=== PATIENT | male | born 1940 | race Caucasian/White ===

== ENCOUNTER 2017-07-26 16:09 | Observation (INO) | payer OTHER ==
[2017-07-26] MEDS ORDERED: NS 1,000 ML IV ONE (16:19)
--- NOTE | 2017-07-26 16:23 | CPEKG ---
Heart Rate: 53 RR Interval: 1132 P-R Interval: 156 QRSD Interval: 114 QT Interval: 484 QTC Interval: 455 P Pendleton: 42 QRS Pendleton: 73 T Wave Pendleton: 34 EKG Severity - ABNORMAL ECG - EKG Impression: SINUS RHYTHM EKG Impression: NONSPECIFIC INTRAVENTRICULAR CONDUCTION DELAY Electronically Signed By: Dario Rojo 26-Jul-2017 16:24:39
--- NOTE | 2017-07-26 16:23 | EDPHY ---
H & P Stated Complaint: Near Syncope HPI/ROS: CHIEF COMPLAINT: Pre syncope HISTORY OF PRESENT ILLNESS: The patient is a 77-year-old man with a history of coronary artery disease and posttraumatic vertigo. He stood up from his desk where he had been working for several hours and walked to the kitchen. When he closed the door the refrigerator in turned around he had severe onset of lightheadedness. He states that did not feel like his typical vertigo symptoms. He felt like he was going to faint and leaned over the counter. His symptoms resolved after about 5 seconds. He denies chest pain or palpitations or shortness of breath associated. He then sat himself on the floor the kitchen and his called 911. When they arrived he had stable blood pressure but heart rate was bradycardic in the 50s in even 40s. He does take metoprolol daily. He did not take any x-rayed today. He denies recent fevers or illness. REVIEW OF SYSTEMS: Constitutional: denies: chills, fever, recent illness, recent injury EENTM: denies: blurred vision, double vision, nose congestion Respiratory: denies: cough, shortness of breath Cardiac: See HPI denies: chest pain, irregular heart rate, palpitations Gastrointestinal/Abdominal: denies: abdominal pain, diarrhea, nausea, vomiting, blood streaked stools Genitourinary: denies: dysuria, frequency, hematuria, pain Musculoskeletal: denies: joint pain, muscle pain Skin: denies: lesions, rash, jaundice, bruising Neurological: denies: headache, numbness, paresthesia, tingling, dizziness, weakness Hematologic/Lymphatic: denies: blood clots, easy bleeding, easy bruising Immunologic/allergic: denies: HIV/AIDS, transplant EXAM: GENERAL: Well-appearing, well-nourished and in no acute distress. HEAD: Atraumatic, normocephalic. EYES: Pupils equal round and reactive to light, extraocular movements intact, sclera anicteric, conjunctiva are normal. ENT: TMs normal, nares patent, oropharynx clear without exudates. Moist mucous membranes. NECK: Normal range of motion, supple without lymphadenopathy or JVD. LUNGS: Breath sounds clear to auscultation bilaterally and equal. No wheezes rales or rhonchi. HEART: Bradycardic Regular rate and rhythm without murmurs, rubs or gallops. ABDOMEN: Soft, nontender, normoactive bowel sounds. No guarding, no rebound. No masses appreciated. BACK: No CVA tenderness, no spinal tenderness, step-offs or deformities EXTREMITIES: Normal range of motion, no pitting or edema. No clubbing or cyanosis. NEUROLOGICAL: Cranial nerves II through XII grossly intact. Normal speech, normal gait. 5/5 strength, normal movement in all extremities, normal sensation PSYCH: Normal mood, normal affect. SKIN: Warm, dry, normal turgor, no visible rashes or lesions. Source: Patient, EMS Exam Limitations: No limitations - Personal History Current Tetanus Diphtheria and Acellular Pertussis (TDAP): Yes - Medical/Surgical History Hx Asthma: No Hx Chronic Respiratory Disease: No Hx Diabetes: No Hx Cardiac Disease: Yes Hx Renal Disease: No Hx Cirrhosis: No Hx Alcoholism: No Hx HIV/AIDS: No Hx Splenectomy or Spleen Trauma: No Other PMH: [place], HTN, Prostate CA, Back Sgy - Family History Significant Family History: No pertinent family hx - Social History Smoking Status: Never smoked Alcohol Use: None Drug Use: None Constitutional: Initial Vital Signs Temperature (C) 36.7 C 07/26/17 16:14 Heart Rate 56 L 07/26/17 16:14 Respiratory Rate 18 07/26/17 16:14 Blood Pressure 175/94 H 07/26/17 16:14 O2 Sat (%) 99 07/26/17 16:14 O2 Delivery Mode Room Air Allergies/Adverse Reactions: tetracycline [Tetracycline] Allergy (Severe, Verified 07/16/10 12:04) SCROTAL SKIN PEEL celecoxib [From Celebrex] Allergy (Intermediate, Verified 07/16/10 12:06) SORES IN MOUTH meloxicam [Meloxicam] Allergy (Intermediate, Verified 07/16/10 12:05) SORES IN MOUTH CONTRAST Allergy (Severe, Uncoded 07/10/09 19:48) Anaphylaxis Home Medications: Medication Instructions Recorded Diazepam [Valium 2 MG (*)] 2 mg PO BID 07/26/17 Famotidine [Pepcid 20 MG (*)] 20 mg PO BID 07/26/17 Herbals/Supplements -Info Only 1 ea PO DAILY 07/26/17 Lisinopril [Zestril 5 mg (*)] 5 mg PO DAILY 07/26/17 Metoprolol Succinate 50 mg PO DAILY 07/26/17 Rosuvastatin Calcium [Crestor 20mg 10 mg PO DAILY 07/26/17 (*)] Medical Decision Making - Diagnostics EKG Interpretation: An EKG obtained and was read and documented in trace view. Please see trace view for full reading and report. Sinus rhythm, bradycardia, no acute ischemic changes Imaging Results: Imaging Impressions Chest X-Ray 07/26/17 16:20 Impression: Negative. ED Course/Re-evaluation: 4:51 p.m. I discussed the case with Dr. Reeder who will admit to the PCU for further monitoring and possibly pacemaker. Differential Diagnosis: Partial list of the Differential diagnosis considered include but were not limited to; vertigo, bradycardia, presyncope and although unlikely based on the history and physical exam, I also considered dehydration, electrolyte abnormality, acute coronary disease. - Data Points Laboratory Results: Laboratory Results 07/26/17 16:20 07/26/17 16:20 07/26/17 07/26/17 07/26/17 16:20 16:20 16:20 WBC 7.26 10^3/uL 10^3/uL (3.80-9.50) RBC 4.06 10^6/uL L 10^6/uL (4.40-6.38) Hgb 14.0 g/dL g/dL (13.7-17.5) Hct 38.8 % L % (40.0-51.0) MCV 95.6 fL fL (81.5-99.8) MCH 34.5 pg H pg (27.9-34.1) MCHC 36.1 g/dL g/dL (32.4-36.7) RDW 12.0 % % (11.5-15.2) Plt Count 208 10^3/uL 10^3/uL (150-400) MPV 9.3 fL fL (8.7-11.7) Neut % (Auto) 58.6 % % (39.3-74.2) Lymph % (Auto) 28.2 % % (15.0-45.0) Baxter % (Auto) 9.0 % % (4.5-13.0) Eos % (Auto) 3.3 % % (0.6-7.6) Baso % (Auto) 0.8 % % (0.3-1.7) Nucleat RBC Rel Count 0.0 % % (0.0-0.2) Absolute Neuts (auto) 4.25 10^3/uL 10^3/uL (1.70-6.50) Absolute Lymphs (auto) 2.05 10^3/uL 10^3/uL (1.00-3.00) Absolute Monos (auto) 0.65 10^3/uL 10^3/uL (0.30-0.80) Absolute Eos (auto) 0.24 10^3/uL 10^3/uL (0.03-0.40) Absolute Basos (auto) 0.06 10^3/uL 10^3/uL (0.02-0.10) Absolute Nucleated RBC 0.00 10^3/uL 10^3/uL (0-0.01) Immature Gran % 0.1 % % (0.0-1.1) Immature Gran # 0.01 10^3/uL 10^3/uL (0.00-0.10) PT 13.5 SEC SEC (12.0-15.0) INR 1.04 (0.83-1.16) APTT 26.0 SEC SEC (23.0-38.0) Sodium 137 mEq/L mEq/L (134-144) Potassium 4.2 mEq/L mEq/L (3.5-5.2) Chloride 103 mEq/L mEq/L (97-110) Carbon Dioxide 22 mEq/l mEq/l (22-31) Anion Gap 12 mEq/L mEq/L (8-16) BUN 26 mg/dL H mg/dL (7-23) Creatinine 1.3 mg/dL mg/dL (0.7-1.3) Estimated GFR 54 Glucose 97 mg/dL mg/dL (70-100) Calcium 9.1 mg/dL mg/dL (8.5-10.4) Troponin I < 0.012 ng/mL ng/mL (0.000-0.034) Medications Given: Discontinued Medications Sodium Chloride (Ns) 1,000 mls @ 0 mls/hr IV EDNOW ONE; Wide Open PRN Reason: Protocol Stop: 07/26/17 16:20 Last Admin: 07/26/17 16:47 Dose: 1,000 mls Departure - Departure Disposition: Home, Routine, Self-Care Clinical Impression: Pre-syncope Syncope Qualifiers: Syncope type: unspecified Qualified Code(s): R55 - Syncope and collapse Condition: Good
[2017-07-26 16:33] LABS: % IMMATURE GRANULYOCYTES 0.1 % (0.0-1.1); ABSOLUTE IMMATURE GRANULOCYTES 0.01 10^3/uL (0.00-0.10); ADD DIFF? NO; ADD MORPH? NO; ADD SCAN? NO; ATYPICAL LYMPHOCYTE FLAG 0 (0-99); FRAGMENT RBC FLAG 0 (0-99); HEMATOCRIT 38.8 % (40.0-51.0); LEFT SHIFT FLG 0 (0-99); LIPEMIA HEMOLYSIS FLAG 90 (0-99); MEAN CELL HEMOGLOBIN 34.5 pg (27.9-34.1); MEAN CELL HEMOGLOBIN CONCENTR. 36.1 g/dL (32.4-36.7); MEAN CELL VOLUME 95.6 fL (81.5-99.8); MEAN PLATELET VOLUME 9.3 fL (8.7-11.7); PLATELET CLUMPS FLAG 0 (0-99); PLATELET COUNT 208 10^3/uL (150-400); RED BLOOD CELL COUNT 4.06 10^6/uL (4.40-6.38)
[2017-07-26 16:42] LABS: ANION GAP 12 mEq/L (8-16); CALCIUM 9.1 mg/dL (8.5-10.4); CARBON DIOXIDE 22 mEq/l (22-31); CHLORIDE 103 mEq/L (97-110); CREATININE 1.3 mg/dL (0.7-1.3); GLOMERULAR FILTRATION RATE 54; GLUCOSE 97 mg/dL (70-100); POTASSIUM 4.2 mEq/L (3.5-5.2); SODIUM 137 mEq/L (134-144)
[2017-07-26 16:53] LABS: TROPONIN I < 0.012 ng/mL (0.000-0.034)
[2017-07-26 16:55] LABS: INR 1.04 (0.83-1.16); PROTIME(PATIENT) 13.5 SEC (12.0-15.0)
[2017-07-26] MEDS ORDERED: NS 1,000 ML IV SCH (18:45)
--- NOTE | 2017-07-26 19:27 | GHP ---
[f rep st] HISTORY AND PHYSICAL DATE OF ADMISSION: 07/26/2017 HISTORY OF PRESENT ILLNESS: The patient is a 77-year-old male who presented to the emergency room following a presyncopal event at home. He was going to put something into the fridge, turned, and had a brief 2-3 second event of confusion and presyncope. He sat down in a chair, and the feeling passed. He did not lose consciousness. He was able to tell his daughter during the event that he felt like something was wrong. He did not experience any chest pain, shortness of breath, palpitations, numbness or tingling to his extremities, loss of sensation in any of his extremities, weakness, or, again, loss of consciousness during the event. The entire thing only lasted a few seconds and then he was back at baseline. He did not experience any change in sensation or strength of any of his extremities, facial drooping, or slurred speech during or after the event. His daughter called EMS, who arrived at their house and found him to be bradycardic, with a low of 47 beats per minute. Blood pressure has remained stable in the 140s to 160s. They decided to bring him to the hospital for further evaluation. At this time, the patient denies any chest pain, palpitations, shortness of breath, dizziness, lightheadedness, nausea, vomiting, or symptoms of vertigo. He does report that over the past couple of weeks he has had increased stress within his personal life that he feels likely contributed to this event. He had received a somewhat stressful and troubling phone call prior to this event that he is thinking may have precipitated it. PAST MEDICAL HISTORY: Includes coronary artery disease, myocardial infarction with a stent placement in 2008, hypertension, prostate cancer, Meniere's, hypercholesterolemia, hyperlipidemia. REVIEW OF SYSTEMS: GENERAL: Denies any fever, chills, headache. EENT: Denies any blurry vision, changes in vision. RESPIRATORY: Denies shortness of breath, cough, wheezing. CV: Denies chest pain, palpitations, shortness of breath. GI: Denies nausea, vomiting, diarrhea, abdominal pain. NEURO: Does report intermittent tingling to his fingertips and toes over the past week or so , though none at this time. Also reports some confusion during the presyncopal event. Denies confusion or neuro changes at this time. EXAM: GENERAL: Alert and oriented x4. VITALS: Stable. HEAD: Atraumatic, normocephalic. EENT: PERRL. EOMI. RESPIRATORY: Lungs clear to auscultation bilaterally. No wheezing, rhonchi, or rales. CARDIAC: S1, S2. Regular rate and rhythm. Currently, 54 beats per minute. ABDOMEN: Soft, nontender, nondistended. EXTREMITIES: Warm, dry. No peripheral edema. NEURO: Grossly intact and without acute changes. ASSESSMENT/PLAN: We will admit the patient overnight for monitoring for bradycardia with a heart rate in the 50s, with a low of 47 per EMS and possible presyncopal event versus brief episode of vertigo. We will check a head CT due to his confusion during the event, though he appears to be at baseline at this point. Cxr on admission was negative for acute findings. EKG showed sinus bradycardia. Troponin has been negative. Will repeat another one this evening. Labs are grossly within normal. Renal function shows creatinine of 1.3 and a BUN of 26. It is likely that he is a little bit on the dry side, so will continue IV fluids overnight for hydration. We will plan to decrease his beta-alessandra and continue to monitor his heart rate. He is slightly hypertensive at this point with a blood pressure in the 160s, so will likely increase his lisinopril and consider addition of calcium channel alessandra if needed. The patient expresses that he has had a significant amount of stress within his personal life over the past couple of weeks that has likely contributed to this event, so will get him in touch with a counselor to talk about stress management and coping mechanisms. Will also have Physical Therapy evaluate him for safety with ambulation. Will also continue IV fluids overnight to maintain hydration. DISPOSITION: Will admit for observation overnight and see how he is doing tomorrow following medication adjustments. /[id number]/MODL MTDD
[2017-07-26] MEDS: DIAZEPAM 2 MG TAB PO SCH (21:06)
[2017-07-26] MEDS: FAMOTIDINE 20 MG TAB PO SCH (21:06)
[2017-07-27 03:52] VITALS: PULSE 50; O2SAT 95
[2017-07-27 08:01] VITALS: BP 128/60; RESP 16; TEMP 98
[2017-07-27 08:05] LABS: ANION GAP 9 mEq/L (8-16); CALCIUM 8.6 mg/dL (8.5-10.4); CARBON DIOXIDE 23 mEq/l (22-31); CHLORIDE 107 mEq/L (97-110); CREATININE 1.3 mg/dL (0.7-1.3); GLOMERULAR FILTRATION RATE 54; GLUCOSE 87 mg/dL (70-100); POTASSIUM 4.6 mEq/L (3.5-5.2); SODIUM 139 mEq/L (134-144)
[2017-07-27 08:17] LABS: TROPONIN I 0.017 ng/mL (0.000-0.034)
--- NOTE | 2017-07-27 08:54 | SOAPPROG ---
BETTE Progress Note Assessment/Plan: Assessment: Plan: 07/27/17 08:53 bradycardia---d/c metoprolol, d/c home follow HR and BP office f/u next week Subjective: Teo feels fine today. No sx since event at house which lasted from 5-10 seconds Objective: Vital Signs Temp Pulse Resp BP Pulse Ox 36.6 C 50 L 16 128/60 H 95 07/27/17 08:00 07/27/17 08:00 07/27/17 08:00 07/27/17 08:00 07/27/17 08:00 Laboratory Results 07/27/17 07:42 07/26/17 07/27/17 07/28/17 05:59 05:59 05:59 Intake Total 220 Balance 220 PT 13.5 SEC (12.0-15.0) 07/26/17 16:20 INR 1.04 (0.83-1.16) 07/26/17 16:20 Gen: NAD alert Heart: RRR with walking loop HR increases to 60's Lungs: CTAB Le's no edema labs stable ICD10 Worksheet Patient Problems: Problems Problem Status Onset Pre-syncope Acute Syncope Acute
[2017-07-27] MEDS ORDERED: ASPIRIN 325 MG TAB PO SCH ×2 (09:00→09:30)
[2017-07-27] MEDS ORDERED: ROSUVASTATIN CALCIUM 10 MG TAB PO SCH (09:00)
[2017-07-27] MEDS ORDERED: ROSUVASTATIN CALCIUM 20 MG TAB PO SCH (09:00)
[2017-07-27] MEDS ORDERED: LISINOPRIL 10 MG TAB PO SCH ×2 (09:00)
[2017-07-27] MEDS ORDERED: METOPROLOL SUCCINATE XR 25 MG TAB PO SCH (09:00)
--- NOTE | 2017-07-27 09:27 | ASMTCMCOM ---
CM Note CM Note Notes: Chart reviewed. Patient medically cleared for discharge. Plan: dc to home independent. CM available should needs arise. Date Signed: 07/27/2017 09:27 AM Electronically Signed By:Dalila Suazo RN
[2017-07-27] MEDS: FAMOTIDINE 20 MG TAB PO SCH (09:29)
[2017-07-27] MEDS: DIAZEPAM 2 MG TAB PO SCH (09:29)
[2017-07-27] MEDS ORDERED: ASPIRIN EC 325 MG TAB PO SCH (09:30)
--- NOTE | 2017-07-27 09:35 | GDS ---
[f rep st] DISCHARGE SUMMARY REASON FOR ADMISSION: Probable vasovagal episode, lightheadedness in a patient with known CAD. DISCHARGE DIAGNOSIS: Brief hypotension, bradycardia likely contributing to his symptoms mirrored in with stress and age. His heart rate was found to be in the 40s and 50s in the hospital. His metopro lol has been discontinued. His blood pressure has been stable. He was walked around the loop on the telemetry floor today and heart rate increased to the 60s. He has not had shortness of breath, ches t pain or palpitations. He otherwise feels well. He has not had another episode since the brief epi sode which lasted for 5-10 seconds in his home yesterday. He has instructions to follow his heart ra te and blood pressure. He will increase his Crestor back toward 20 mg once daily. He will continue with aspirin and other supplements. He will have office followup in the next week. /[id number]/MODL
--- NOTE | 2017-07-27 15:01 | ASDISCHSUM ---
Discharge Information Plan Status:Home with No Needs Medically Cleared to Leave:07/26/2017 Discharge Date:07/27/2017 10:40 AM CM D/C Disposition:Home, Routine, Self-Care ADT D/C Disposition:Home, Routine, Self-Care Projected Discharge Date:07/27/2017 12:00 AM Transportation at D/C:Family Discharge Delay Reason: Follow-Up Date:07/27/2017 12:00 AM Discharge Slot: Final Diagnosis: Placement Information Patient Contact Information Contact Name:LAMAR Relationship: Address:[address] [place] [address] City:[place] Alternate Phone: State/Zip Code:[place] [address] Email: Financial Information Financial Class: Primary Plan Desc:MEDICARE OUTPATIENT Primary Plan Number:[id number] Secondary Plan Desc:CORRINA Secondary Plan Number:[id number] Assessment Information LACE LACE Length of stay for Answers: Less than 1 day current admission Acuity / Level of Care Answers: Was the patient admitted to hospital via the emergency department? Yes: Comorbidities - select Answers: Previous myocardial all that apply infarction Emergency dept visits in Answers: 1 last 6 months Score: 5 Date Signed: 07/27/2017 09:25 AM Electronically Signed By:Dalila Suazo RN [facility] CM Progress Note CM Note CM Note Notes: Chart reviewed. Patient medically cleared for discharge. Plan: dc to home independent. CM available should needs arise. Date Signed: 07/27/2017 09:27 AM Electronically Signed By:Dalila Suazo RN Intervention Information
== END 2017-07-27 10:40 | disposition home or self-care (01) ==
LOC: EDUNIT# → F2W 18:36
PROVIDERS: ADMIT Hospitalist; ATTEND Internal Medicine
DX: R55 Syncope and collapse (principal); I25.10 Atherosclerotic heart disease of native coronary artery without angina pectoris; I10 Essential (primary) hypertension; I25.2 Old myocardial infarction; E78.00 Pure hypercholesterolemia, unspecified; E78.5 Hyperlipidemia, unspecified; Z85.46 Personal history of malignant neoplasm of prostate; Z95.5 Presence of coronary angioplasty implant and graft
CPT/HCPCS: 70450; 71020; 93005; 96360; 99285; G0378

== ENCOUNTER 2018-12-05 21:18 | Emergency (ER) | payer OTHER ==
[~2018-12-05 21:18] MED LIST: ERYTHROMYCIN 0.5% 1 GM OPHT.OINT RTEYE SCH
--- NOTE | 2018-12-05 21:38 | EDPHY ---
H & P Time Seen by Provider: 12/05/18 21:38 HPI/ROS: Chief complaint. Eye problem HPI. Patient is a 78-year-old male with history of macular degeneration. He had a regularly scheduled I injection for macular degeneration today at [facility]. However his regular prop sawyer was on maternity leave and so another prop sawyer did the patient's injection. The patient feels that the injection felt somewhat different and was maybe injected somewhat lower than previously. Normally he gets small clouds after the injection and this time there was a well-defined Wilkinson that was somewhat different. He stopped at a hardware store on the way home from his treatment and then worked in the [employer] after getting home and he normally rest. He then subsequently began to develop eye pain with his right eye. He noticed a black dot this quite well circumscribed about 1 and 0.5 hr ago. He feels that this black spot has gone toward the bottom of his eye probably with gravity. He has eye pain with movement and feels he has pain in the muscles of his eye. His vision is slightly cloudy. He has had no glaucoma. He has had previous cataract surgery. ROS 10 systems were reviewed and negative with the exception of the elements mentioned in the history of present illness Past Medical/Surgical History: [place], hypertension, prostate cancer, back surgery Social History: , nonsmoker, no alcohol Smoking Status: Never smoked Physical Exam: General Appearance: Alert well-developed male mild distress vital signs are stable Eyes: Conjunctiva is injected in the right eye. Pupil is equal reactive. Extraocular movements are intact though painful. Funduscopic exam is unremarkable ENT, Mouth: Mucous membranes are moist. Respiratory: There are no retractions, lungs are clear to auscultation. Cardiovascular: Regular rate and rhythm. Gastrointestinal: Abdomen is soft and nontender, no masses, bowel sounds normal. Neurological: Awake and alert, sensory and motor exams grossly normal. Skin: Warm and dry, no rashes. Musculoskeletal: Neck is supple nontender. Extremities symmetrical, full range of motion. Psychiatric: Patient is oriented X 3, there is no agitation. Constitutional: Initial Vital Signs Temperature (C) 37 C 12/05/18 21:24 Heart Rate 81 12/05/18 21:24 Respiratory Rate 20 12/05/18 21:24 Blood Pressure 189/84 H 12/05/18 21:24 O2 Sat (%) 97 04/02/19 21:24 O2 Delivery Mode Room Air Allergies/Adverse Reactions: tetracycline [Tetracycline] Allergy (Severe, Verified 12/05/18 21:24) SCROTAL SKIN PEEL celecoxib [From Celebrex] Allergy (Intermediate, Verified 12/05/18 21:24) SORES IN MOUTH meloxicam [Meloxicam] Allergy (Intermediate, Verified 12/05/18 21:24) SORES IN MOUTH CONTRAST Allergy (Severe, Uncoded 12/05/18 21:24) Anaphylaxis Home Medications: Medication Instructions Recorded Diazepam [Valium 2 MG (*)] 2 mg PO BID 07/26/17 Famotidine [Pepcid 20 MG (*)] 20 mg PO BID 07/26/17 Herbals/Supplements -Info Only 1 ea PO DAILY 07/26/17 Lisinopril [Zestril 5 mg (*)] 5 mg PO DAILY 07/26/17 Rosuvastatin Calcium [Crestor 20mg 10 mg PO DAILY 07/26/17 (*)] Aspirin [Aspirin 325 mg (*)] 325 mg PO DAILY tab 07/27/17 Medical Decision Making Procedures: Visual acuity shows right eye 20/70, left eye 20/100, together 20/50. This is without corrective lenses ED Course/Re-evaluation: I consulted discussed the case with Dr. Tiffanie Richmond, Ophthalmology. She feels a black dot is likely air bubble. Eye irritation may well be secondary to Betadine that is used to cleanse the eye prior to injection. She recommends pain controlled, erythromycin ointment tonight. A discussed this with patient and his . They are in agreement. We discussed criteria for return and importance of follow-up and further evaluation tomorrow morning. They expressed understanding and agreement Differential Diagnosis: I considered intra-ocular infection, bleeding, medication reaction Departure - Departure Disposition: Home, Routine, Self-Care Clinical Impression: Pain, eye, right Condition: Good Instructions: Eye Pain (ED) Additional Instructions: erythromycin ointment using 1/2 inch ribbon every 4 hours while awake. Hydrocodone using 1 pill every 4-6 hours as needed for pain Return tonight for worsening symptoms Call Ophthalmology tomorrow morning at [facility] for discussion further evaluation. I will also give you the name of local Ophthalmology for follow-up tomorrow if unable to be re-evaluated at [facility] Referrals: Jaspreet Elkins MD [Primary Care Provider] - As per Instructions Alethea Richmond MD [Medical Doctor] - 1 day without fail
[2018-12-05] MEDS ORDERED: HYDROCOD/APAP 5/325 PREPACK#6 BTL TAKEHOME ONE (22:30)
[2018-12-05] MEDS ORDERED: ERYTHROMYCIN 0.5% 1 GM OPHT.OINT RTEYE ONE (22:30)
[2018-12-05 23:14] VITALS: BP 158/89
== END 2018-12-05 23:14 | disposition home or self-care (01) ==
DX: H57.11 Ocular pain, right eye (principal); H35.30 Unspecified macular degeneration; I10 Essential (primary) hypertension; E78.5 Hyperlipidemia, unspecified